=== PATIENT | female | born 1990 | race Caucasian/White ===

== ENCOUNTER → 2017-07-27 01:11 | Observation (INO) ==
[2017-07-26 21:02] LABS: Amphetamine Screen,Urine Negative ng/mL (Cutoff=1000); Barbiturate Screen,Urine Negative ng/mL (Cutoff=200); Benzodiazepines Screen,Urine Negative ng/mL (Cutoff=200); Cannabinoid Screen,Urine Negative ng/mL (Cutoff = 50); Cocaine Screen,Urine Negative ng/mL (Cutoff= 300); Opiate Screen,Urine Negative ng/mL (Cutoff=300); Phencyclidine Screen,Urine Negative ng/mL (Cutoff=25)
--- NOTE | 2017-07-27 01:03 | OB/GYN Progress Note ---
Date of Encounter: 07/27/17 Time of Encounter: 01:01 - Assessment and Plan (1) 38 weeks gestation of Current Visit: No Status: Acute (2) Uterine contractions during Current Visit: No Status: Acute No cervical change in repeated cervical exams. tracing reactive. Offered therapeutic rest, pt declined. Discharged to home with labor precautions, Pt and mother verbalize understanding. Subjective - Subjective Interval history: 38+4 weeks gestation to [facility] for labor evaluation. Pt states her contractions have become stronger and more frequent today. Pt reports good movement, denies contractions, vaginal bleeding or leaking of fluid. Pt with very late and minimal care. Antepartum ROS: movement normal, contractions, no loss of fluid, no vaginal bleeding Objective - Vital Signs Vital Signs: Intake and Output 07/26/17 07/26/17 07/27/17 15:59 23:59 07:59 Other: Weight 68 kg - Exam FHR: auscultation normal FHR comments: Baseline variable ranged from 135-150 with prolonged accelerations in 180's-190; s Auscultation: bilateral: normal Abdomen: Present: normal appearance, soft, gravid Uterus: Present: normal Cervical dilation: 5/80/-2
== END | disposition home or self-care (01) ==
LOC: 1NENULAB
PROVIDERS: ADMIT Advanced Practice Midwife; ATTEND Advanced Practice Midwife

== ENCOUNTER 2017-07-29 14:41 | Inpatient (IN) ==
--- NOTE | 2017-07-29 14:28 | OB/GYN History & Physical ---
Date of Encounter: 07/29/17 Time of Encounter: 14:25 Assessment and Plan (1) and not yet delivered in third trimester Current visit: Yes Status: Acute (2) Active labor at term Current visit: Yes Status: Acute We will admit the patient and plan is to anticipate normal spontaneous vaginal delivery (3) 38 weeks gestation of Current visit: No Status: Acute History of Present Illness HPI: Ms. Tang is a 26 year old female 2 para 1 at 38-6/7 weeks who presented to labor and delivery complaining of contractions every 2-3 minutes. Patient has been seen on labor and delivery at least 3 times in the last week for contractions. When she was seen a week ago she was 1-2 cm in the office and she was 3 cm another visit she was 4 cm and 2 days ago she was 5 cm. On admission today she is now 6 cm with bulging membranes. Patient's had limited care she was on was 32 weeks on her initial visit and has only had 4 office visits. Does understand she will be a cord stat because of this. Patient denies any leaking of fluid or bleeding. Patient GBS status is negative she is Rh+ and rubella positive. Patient is wanting a tubal ligation papers were signed one month ago we will discuss possible tubal ligation tomorrow. Past Med Surg Social Fam HX - Past Medical History Source: patient, old records reviewed Medical history: no medical history Psychiatric history: no psych history - Past Surgical History Surgical History: no surgical history - Social History Smoking Status: Never smoker Smokeless Tobacco Status: No Alcohol use: none Drug use: none Occupational status: unemployed Current living situation: Home - Independent Activity Level: Independent ambulation Recent Out of Country Travel Within the Last 8 Weeks: No Exposure or Possible Exposure to Illness During Travel: No - Family History Father Living Status: Still Living Hx Family Cardiac Disorders: Yes Hx Family Respiratory Disorders: No Hx Family Cancer: No Hx Family GI Disorders: No Hx Family Endocrine Disorder: No Hx Family Neuromuscular Disorders: No Hx Family Neurologic Disorders: No Hx Family HEENT Disorders: No Hx Family Autoimmune Disorders: No - Additional Family History Additional family history: Family history noncontributory at this time Obstetrical History - Pregnancies : 2 Para: 1 Livin Medications and Allergies Bactrim Ds 160 mg PO BID 07/23/17 [History] Ferrous Sulfate 325 mg PO DAILY 07/23/17 [History] Formula Tablet 1 tab PO DAILY 07/23/17 [History] 3 Allergy/AdvReac Type Severity Reaction Status Date / Time No Known Allergies Allergy Verified 07/23/17 21:43 Review of System OB All systems PM: reviewed and no additional remarkable complaints except as stated Exam - Constitutional Constitutional: well developed, well nourished, average body habitus, moderate distress - HEENT HEENT: EOMI, PERRL, Mucus Membranes Moist - Neck Neck exam: full ROM - Lungs Respiratory exam: CTAB - Cardiovascular Cardiovascular exam: RRR - Abdomen Abdomen: Present: bowel sounds normal, gravid - Cervix Dilation: 6 Effacement: 90 Station: -1 ( heart tones 140s reactive contractions every 2 minutes) Results All other labs normal. - VTE Reasons for not Prescribing Prophylaxis: Treatment not Indicated - Low risk for VTE
[~2017-07-29 14:41] MED LIST: Famotidine 20 MG/2 ML VIAL IVP PRN; Naloxone 0.4 MG/ML INJ IVP PRN; Ondansetron 4 MG/2 ML VIAL IVP PRN
[2017-07-29] MEDS ORDERED: Ringers Solution, Lactated 1,000 ML IVC SCH (14:45)
[2017-07-29 14:53] LABS: Basophils % 0.2 %; Eosinophils # 0.1 K/mcL (0.0-0.6); Eosinophils % 0.3 %; Hematocrit 32.4 % (35.3-44.9); Hemoglobin 9.9 g/dL (11.5-15.4); Immature Granulocytes % 0.5 % (0-4); Lymphocytes # 1.6 K/mcL (0.6-4.6); Lymphocytes % 10.1 %; Mean Corpuscular HGB Conc 30.6 g/dL (31.6-35.5); Mean Corpuscular Hemoglobin 23.7 pg (28.0-33.3); Mean Corpuscular Volume 77.7 fL (83.0-100.0); Mean Platelet Volume 11.7 fL (9.4-12.4); Monocytes # 1.1 K/mcL (0.0-1.3); Monocytes % 7.2 %; Neutrophils # 12.8 K/mcL (1.6-8.9); Platelet Count 201 K/mcL (140-400); Red Blood Count 4.17 M/mcL (3.82-4.97); Red Cell Distribution Width 16.8 % (11.5-14.5); Segmented Neutrophils % 81.7 %
[2017-07-29 15:01] LABS: Amphetamine Screen,Urine Negative ng/mL (Cutoff=1000); Barbiturate Screen,Urine Negative ng/mL (Cutoff=200); Benzodiazepines Screen,Urine Negative ng/mL (Cutoff=200); Cannabinoid Screen,Urine Negative ng/mL (Cutoff = 50); Cocaine Screen,Urine Negative ng/mL (Cutoff= 300); Opiate Screen,Urine Negative ng/mL (Cutoff=300); Phencyclidine Screen,Urine Negative ng/mL (Cutoff=25)
[2017-07-29] MEDS ORDERED: Ringers Solution, Lactated 500 ML IVC ONE (15:12)
[2017-07-29] MEDS ORDERED: EPHEDrine 50 MG/ML VIAL IVP PRN (15:12)
--- NOTE | 2017-07-29 15:12 | Anesthesia Evaluation PreOp ---
Date of Encounter: 07/29/17 Time of Encounter: 15:11 - Past History Planned Operation: IMMANUEL Cardiac History: Denies any Significant Hx Pulmonary History: Denies Any Significant HX QUALITY SYSTEMS TECHNICIAN History: Denies Any Significant HX Other Medical History: Denies Any Significant HX Anesthesia History: No Prior Anesthetic Complications Alcohol Use: none Drug use: none Medications and Allergies Bactrim Ds 160 mg PO BID 07/23/17 [History] Ferrous Sulfate 325 mg PO DAILY 07/23/17 [History] Formula Tablet 1 tab PO DAILY 07/23/17 [History] 3 Allergy/AdvReac Type Severity Reaction Status Date / Time No Known Allergies Allergy Verified 07/29/17 14:31 - Meds/Allergy Pre-op Review Medications Reviewed: Yes Allergies Reviewed: Yes Beta Blockers on Current Med List: No Anesthesia Results - Labs 07/29/17 14:45 Anesthesia Exam Height: 1.75m Weight: 67.7kg - HEENT Pupil (Motor): Pupils equal Mallampati: II Teeth: Poor dentition Oral Opening: Greater than 3 - QUALITY SYSTEMS TECHNICIAN LOC: Oriented QUALITY SYSTEMS TECHNICIAN Motor: Normal RUE, Normal LUE, Normal RLE, Normal LLE, Normal Face QUALITY SYSTEMS TECHNICIAN Sensory: Normal: RUE, LUE, RLE, LLE, Face - Cardiac Rhythm: Regular Murmur: None JVD: No Carotid Bruit: No - Pulmonary Breath Sounds: bilateral Clear Respiratory Effort: Symmetrical Anesthesia Assess/Plan ASA Score: 2 Modified [place] Scale for Level of Consciousness: Cooperative, oriented, and tranquil Anesthetic Plan: General (plan b), Regional (plan a) Autologous Blood: Yes Monitoring Plan: Standard Monitors
[2017-07-29] MEDS ORDERED: Epidural Premix (fent/bupiv) 110 ML EP SCH (15:15)
[2017-07-29] MEDS ORDERED: Epidural Premix (fent/bupiv) 110 ML EP ONE (15:15)
--- NOTE | 2017-07-29 15:43 | Anesthesia Procedures ---
Date of Encounter: 07/29/17 Time of Encounter: 15:41 Procedures: Anesthesia - Epidural/Spinal Patient ID/Chart reviewed: Yes Patient examined: Yes OB Eval: Gestational age: 38.2 OB Eval: : 2 OB Eval: Hx Para: 1 OB Eval: Dilated at (cm): 6 OB Eval: Contractions: Non-stressed pattern Consent Obtained: Yes Supplemental Oxygen: None/Room Air Site Prep: Aseptic Technique, Sterile prep and drape, Povidone-Iodine 1% Patient position: upright Local Anesthetic: Lidocaine 1% Amount of Local Anesthetic used: 3 Touhy Needle Gauge: 18 Touhy Needle Depth (cm): 7 Catheter Depth at Skin (cm): 17 Test Dose (1.5% Lido + Epi): Volume given (mls): 5 Test Dose Result: Negative Loading Dose: Other: 8ml of epidural pharm bag premix solution Loading Dose Administered: Thru Catheter Infusion Med: 0.125% Bupivacaine w/ 2 mcg/ml Fentanyl Infusion Rate (mls/hr): 15 ([id number]) Catheter Secured in Place: Tegaderm, Tape Interspace Used: L4-L5 Loss of Resistance (TREY): Yes Blood: No CSF: No Paresthesia: No Procedure: pt tolerated procedure well. no complications. vss. fhr stable.
--- NOTE | 2017-07-29 16:04 | OB Labor Progress Note ---
Date of Encounter: 07/29/17 Time of Encounter: 16:00 Labor Progress Note - Subjective Subjective: Patient is comfortable after her epidural - Cervix Cervix: 9/100/+1 AROM clear fluid - Heart Tones Heart Tones: heart tones 140s reactive - [place]: Contractions every 2 minutes - Plan Plan: Anticipate normal spontaneous vaginal delivery
[2017-07-29] MEDS ORDERED: Oxytocin 20 units/ LR 1000 mL 20 UNIT/1,000 ML BAG IVC ONE (16:37)
[2017-07-29] MEDS ORDERED: Acetaminophen 325 MG TABLET PO PRN ×2 (17:51→20:24)
[2017-07-29] MEDS ORDERED: Measles/Mumps/Rubella Vacc 0.5 ML VIAL SQ PRN ×2 (17:51→20:24)
[2017-07-29] MEDS ORDERED: Ibuprofen 600 MG TABLET PO PRN ×2 (17:51→20:24)
[2017-07-29] MEDS ORDERED: Oxytocin 20 units/ LR 1000 mL 20 UNIT/1,000 ML BAG IVC SCH ×2 (18:00→20:24)
--- NOTE | 2017-07-29 18:00 | OB/GYN Procedure Note ---
Delivery - Delivery Date: 07/29/17 Provider: Kory Sidhu Intrapartum events: none Delivery induction: none Delivery augmentation: rupture of membranes Delivery monitor: external FHT, external uterine Anesthesia: epidural Estimated Blood Loss: 100 - (s) Infant A Delivery Date: 07/29/17 Infant Delivery Time: 17:25 Presentation: vertex Position: SUSHIL Route of delivery: Gender: Female Viability: Viable Pounds: 7 Ounces: 4 Weight Gram: 3.29 kg at 1 minute: 9 at 5 mins: 9 Shoulder Dystocia: not encountered Specimens collected: cord blood Placenta: spontaneous Cord: nuchal cord, 3 umbilical vessels, nuchal cut - Repair Episiotomy: none Laceration Description: Perineal - 2nd Degree - Complications Delivery complications: none Delivery comments: Patient is a 26-year-old 2 para 1 at 38-6/7 weeks who presented to labor and delivery in active labor. Patient was 6 cm on admission and had been 5 cm 2 days ago. Patient was brynn every 2 minutes she received an epidural after the epidural patient was examined and was 9 cm. She was artificially ruptured within 30 minutes patient was wanted to push patient did push for approximately 45 minutes before delivering a viable female infant in right occiput anterior presentation at 1725. There was a nuchal cord 1 which was tied was clamped and cut infant was then delivered and was placed on the abdomen but was then bulb suctioned. Apgars were 9 at 1 minutes, 9 at 5 minutes, weight was 7 lbs. 4 oz.. Placenta was then delivered spontaneous. Placenta was then delivered spontaneously with a three-vessel cord , competitive intelligence analyst Dr. Sidhu, anesthesia or epidural, a blood loss 100 mL. Patient had a second-degree perineal laceration repaired with 3-0 Vicryl in usual fashion. Cervix and vagina was visualized intact. Patient tolerated the delivery well she will be observed 2 hours before being taken floor. Patient is wanting a tubal ligation has signed papers she will be made nothing by mouth after midnight for the tubal. - Disposition Mom disposition: stable in LDR [place] disposition: stable in LDR
[2017-07-30] MEDS ORDERED: Ringers Solution, Lactated 1,000 ML ONE (06:53)
--- NOTE | 2017-07-30 08:47 | Discharge Summary ---
Date of Encounter: 07/30/17 Time of Encounter: 08:47 - Discharge Diagnosis (1) (normal spontaneous vaginal delivery) Priority: Primary Status: Acute Comments: Doing well s/p . (2) tubal ligation planned Priority: Secondary Status: Acute Comments: Desires BPS - Discharge Medications Prescriptions: Ibuprofen [Motrin] 600 mg PO Q6HR PRN #40 tab PRN Reason: Cramping HYDROcodone/Acet 5/325 mg [Colon 5-325 mg] 1 tab PO Q4H PRN #25 tab PRN Reason: post op pain Home Medications: Bactrim Ds 160 mg PO BID 07/23/17 [History] Ferrous Sulfate 325 mg PO DAILY 07/23/17 [History] Formula Tablet 1 tab PO DAILY 07/23/17 [History] HYDROcodone/Acet 5/325 mg [Colon 5-325 mg] 1 tab PO Q4H PRN #25 tab 07/30/17 [Rx ] Ibuprofen [Motrin] 600 mg PO Q6HR PRN #40 tab 07/30/17 [Rx] Allergies/Adverse Reactions: 3 Allergy/AdvReac Type Severity Reaction Status Date / Time No Known Allergies Allergy Verified 07/29/17 14:31 Data Procedures and tests throughout hospitalization: Laboratory Tests 07/29/17 07/29/17 14:45 14:45 WBC 15.7 H RBC 4.17 Hgb 9.9 L Hct 32.4 L MCV 77.7 L MCH 23.7 L MCHC 30.6 L RDW 16.8 H Plt Count 201 MPV 11.7 Immature Gran % 0.5 Seg Neutrophils % 81.7 Lymphocytes % 10.1 Monocytes % 7.2 Eosinophils % 0.3 Basophils % 0.2 Neutrophils # 12.8 H Lymphocytes # 1.6 Monocytes # 1.1 Eosinophils # 0.1 Basophils # 0.0 Urine Opiates Screen Negative Ur Barbiturates Screen Negative Ur Phencyclidine Scrn Negative Ur Amphetamines Screen Negative U Benzodiazepines Scrn Negative Urine Cocaine Screen Negative U Marijuana (THC) Screen Negative Labs on day of discharge: Labs from last 24 hours 07/29/17 07/29/17 14:45 14:45 WBC 15.7 H RBC 4.17 Hgb 9.9 L Hct 32.4 L MCV 77.7 L MCH 23.7 L MCHC 30.6 L RDW 16.8 H Plt Count 201 MPV 11.7 Immature Gran % 0.5 Seg Neutrophils % 81.7 Lymphocytes % 10.1 Monocytes % 7.2 Eosinophils % 0.3 Basophils % 0.2 Neutrophils # 12.8 H Lymphocytes # 1.6 Monocytes # 1.1 Eosinophils # 0.1 Basophils # 0.0 Urine Opiates Screen Negative Ur Barbiturates Screen Negative Ur Phencyclidine Scrn Negative Ur Amphetamines Screen Negative U Benzodiazepines Scrn Negative Urine Cocaine Screen Negative U Marijuana (THC) Screen Negative - Impressions Doing well, desires BPS. Appropriate lochia and cramping. Date of admission: 07/29/17 14:41 Consults: 07/29/17 20:24 Consult to Amusement Machine Mechanic [CONS] Routine Comment: Vaginal delivery, consult needed - Patient Status Disposition: Home, Self-Care Condition: Good Functional capacity at discharge: independent ambulation Overall status at discharge: patient is progressing back to baseline - Discharge Instructions Follow Up With: Lucas Cloud MD [Partnered Physician] - - Diet and Activity Activity: increase activity as tolerated Diet: advance to your usual diet Hospital Course INSULATING MACHINE OPERATOR Time Attestation: Total time spent providing and/or coordinating discharge services: Exam - Constitutional Vitals: Temp Pulse Resp BP Pulse Ox 98.3 F 77 16 108/71 97 07/30/17 07:30 07/30/17 07:30 07/30/17 07:30 07/30/17 07:30 07/30/17 03:22 General appearance IM: A&O X 3 - Respiratory Respiratory exam: Present: CTAB - Cardiovascular Cardiovascular exam IM: Present: RRR - GI/Abdominal GI/Abdominal exam IM: normal bowel sounds - Uterus Position: 2 Fingers Below Umbilicus - VTE Reasons for not Prescribing Prophylaxis: Treatment not Indicated - Low risk for VTE
[2017-07-30] MEDS ORDERED: Prenatal Vit/FA 1 EACH TABLET PO SCH ×2 (09:00)
[2017-07-30] MEDS ORDERED: Lidocaine -MPF 2% 2 ML VIAL ONE (10:52)
[2017-07-30] MEDS ORDERED: *HR* Succinylcholine 200 MG/10 ML VIAL IVP ONE (10:52)
[2017-07-30] MEDS ORDERED: Lidocaine -MPF 4% 5 ML AMPUL ONE (10:52)
[2017-07-30] MEDS ORDERED: *HR* Midazolam HCl 2 MG/2 ML VIAL ONE (10:53)
[2017-07-30] MEDS ORDERED: *HR* Propofol 200 MG/20 ML VIAL IVP ONE (10:53)
[2017-07-30] MEDS ORDERED: *HR* FentaNYL (PF) 100 MCG/2 ML VIAL ONE (10:53)
--- NOTE | 2017-07-30 11:04 | Anesthesia Evaluation PreOp ---
Date of Encounter: 07/30/17 Time of Encounter: 11:01 - Past History Planned Operation: BTL re: Day #1 Cardiac History: Denies any Significant Hx Pulmonary History: Denies Any Significant HX CLINIC DIRECTOR History: Denies Any Significant HX Other Medical History: Denies Any Significant HX Anesthesia History: No Prior Anesthetic Complications, Past Anesthesia Alcohol Use: none Drug use: none Medications and Allergies Bactrim Ds 160 mg PO BID 07/23/17 [History] Ferrous Sulfate 325 mg PO DAILY 07/23/17 [History] Formula Tablet 1 tab PO DAILY 07/23/17 [History] HYDROcodone/Acet 5/325 mg [[place] 5-325 mg] 1 tab PO Q4H PRN #25 tab 07/30/17 [Rx ] Ibuprofen [Motrin] 600 mg PO Q6HR PRN #40 tab 07/30/17 [Rx] 3 Allergy/AdvReac Type Severity Reaction Status Date / Time No Known Allergies Allergy Verified 07/29/17 14:31 - Meds/Allergy Pre-op Review Medications Reviewed: Yes Allergies Reviewed: Yes Beta Blockers on Current Med List: No Anesthesia Results - Labs 07/29/17 14:45 Anesthesia Exam Vital Signs Temp Pulse Resp BP Pulse Ox 07/30/17 07:30 98.3 F 77 16 108/71 07/30/17 03:22 99.1 F 94 16 108/70 97 07/29/17 22:15 98.8 F 95 16 112/73 100 07/29/17 21:00 98.6 F 84 16 112/74 96 07/29/17 20:15 98.1 F 70 16 107/66 99 Intake and Output 07/29/17 07/30/17 07/30/17 23:59 07:59 15:59 Intake Total 450 / 450 1000 / 1000 464 / 464 Output Total 1200 / 1200 1650 / 1650 600 / 600 Balance -750 / -750 -650 / -650 -136 / -136 Intake: IV Fluids 1000 / 1000 464 / 464 Lactated Ringers 1,000 ML 464 / 464 As .ROUTE .STK-MED ONE Rx#:[id number] Oral 450 / 450 0 / 0 Output: Urine 900 / 900 1650 / 1650 600 / 600 Estimated Blood Loss 100 / 100 Catheter 200 / 200 Other: Weight 64 kg 62.5 kg Patient Weight 07/30/17 23:59 Weight 62.5 kg Height: 5'9" Weight: 137# BMI = 20 NPO (# of Hours): MNOc Pain Scale Used: Numeric (1 - 10) - HEENT Pupil (Motor): Pupils equal, EOMI Mallampati: II Teeth: Poor dentition Oral Opening: Greater than 3 - CLINIC DIRECTOR LOC: Oriented CLINIC DIRECTOR Motor: Normal RUE, Normal LUE, Normal RLE, Normal LLE, Normal Face CLINIC DIRECTOR Sensory: Normal: RUE, LUE, RLE, LLE, Face - Cardiac Rhythm: Regular Murmur: None - Pulmonary Breath Sounds: bilateral Clear Anesthesia Assess/Plan ASA Score: 2 Modified [place] Scale for Level of Consciousness: Cooperative, oriented, and tranquil Anesthetic Plan: General Monitoring Plan: Standard Monitors Recovery Plan: PACU Anes Supervising Prov Stmt: Pt seen/evaluated, R&B discussed questions answered and consent obtained. [place] MD
[2017-07-30] MEDS ORDERED: Bupivacaine/EPI 1:200k 0.25%PF 10 ML VIAL INFILT ONE (11:09)
[2017-07-30] MEDS ORDERED: Acetaminophen IV 1,000 MG/100 ML INFUS..BTL ONE (11:20)
[2017-07-30] MEDS ORDERED: *HR* HYDROmorphone 2 MG/ML SYRINGE ONE (11:47)
[2017-07-30] MEDS ORDERED: Ondansetron 4 MG/2 ML VIAL ONE (11:49)
[2017-07-30] MEDS ORDERED: Dexamethasone 4 MG/ML VIAL ONE (11:49)
[2017-07-30] MEDS ORDERED: *HR* Labetalol 20 MG/4 ML SYRINGE IVP PRN (12:07)
[2017-07-30] MEDS ORDERED: *HR* Promethazine 25 MG/ML VIAL IVP PRN (12:07)
[2017-07-30] MEDS ORDERED: *HR* HYDROmorphone (PF) 1 MG/ML SYRINGE IVP PRN (12:07)
--- NOTE | 2017-07-30 12:25 | OB/GYN Procedure Note ---
OB-PHARMACY ASSOCIATE: Procedure - Diagnosis Date of procedure: 07/30/17 Pre-op diagnosis: Multiparity Desires permanent sterilization Post-op diagnosis: same - Procedure Procedure: Modified kinjal bilateral partial salpingectomy Surgeon: Lucas Cloud Anesthesia Type: General Estimated blood loss (cc): 10 Fluids: crystalloid Procedure Complications: None Specimens collected: Bilateral tubal segments Disposition: PACU Narrative: Patient's a 26-year-old multiparous female presents with desire for permanent sterilization. She was aware of operative risks and signed appropriate consent. Description procedure: Patient was taken operating room where general anesthesia was administered. She is prepped draped in usual sterile fashion bladder was drained of clear urine. Scalpel was used to make a small incision below the umbilicus was sharply taken down the fascia fascia was incised and fascial incision was extended bilaterally peritoneum was tented upwards and entered sharply. The left fallopian tube was identified and grasped with Peng clamp and pulled upwards. We gently followed up to the fimbria to ensure that indeed it was tube that was grasped. The fallopian tube was double ligated with oh plain catgut suture. Approximate 4 cm segment of tube was removed. Hemostasis was ensured. Within followed out to the right fallopian tube and followed it out to its distal fimbriated. It was tented upwards with Hostetter clamp and double ligated with oh plain catgut suture. Again approximately 4 cm segment of tube was removed. Hemostasis was ensured. Fascia was closed with 0 Vicryl in a running manner. Skin edges reapproximated with 4-0 Vicryl. All sponge and counts counts are correct patient was taken recovery room in good condition.
[2017-07-30] MEDS ORDERED: Acetaminophen 325 MG TABLET PO PRN (12:42)
[2017-07-30] MEDS ORDERED: Ibuprofen 600 MG TABLET PO PRN (12:42)
[2017-07-30 16:08] VITALS: BP 108/69
[2017-07-31] MEDS ORDERED: Prenatal Vit/FA 1 EACH TABLET PO SCH (09:00)
== END 2017-07-30 19:15 | disposition home or self-care (01) | DRG 541 ==
LOC: 1NENULAB → 1NENUOBS 20:54
PROVIDERS: ADMIT Obstetrics & Gynecology; ATTEND Obstetrics & Gynecology